=== PATIENT | female | born 1950 | race Asian ===

== ENCOUNTER 2018-02-22 08:03 | Day surgery (SDC) | payer OTHER ==
[2018-02-14 16:36] VITALS: BMI 38.4
[2018-02-22] MEDS ORDERED: LIDOCAINE HCL/PF 2% SDV 5ML VIAL ONE (08:12)
[2018-02-22] MEDS ORDERED: PROPOFOL 20 ML ONE ×2 (08:12)
[2018-02-22 09:54] VITALS: BP 110/66; PULSE 80
[2018-02-22 10:57] VITALS: TEMP 98
--- NOTE | 2018-02-25 19:24 | PATH ---
Surgical Pathology Report Patient Name: CARLA ORTEZ [facility]. Rec. #: [id number] /Age/Gender: 1950 (Age: 67) / F Account: [id number] Location: [facility]-ENDOSCOPY Taken: 02/22/2018 Received: 02/22/2018 Reported: 02/25/2018 Physicians: Rush Howe M.D. Specimen(s) Received BX ILEOCECAL VALVE Clinical History History of polyps Postoperative diagnosis: Mucosal irregularity of ileocecal valve Final Diagnosis ILEOCECAL VALVE, BIOPSY: ILEAL MUCOSA SHOWING PROMINENT REACTIVE LYMPHOID AGGREGATE AND FOCAL ACTIVE ILEITIS. Electronically Signed Sandi Baig M.D. Gross Description Received in formalin, labeled "ileocecal valve" are 2 lea, irregular portions of soft tissue measuring 0.3 and 0.5 cm. in greatest dimension. The specimens are submitted in toto in one cassette. /02/22/201802/22/2018
== END 2018-02-22 10:30 | disposition home or self-care (01) ==
LOC: FASU-ENDO 08:03
PROVIDERS: ATTEND Internal Medicine Gastroenterology
PROC: 0DBC8ZX Excision of Ileocecal Valve, Via Natural or Artificial Opening Endoscopic, Diagnostic (ICD-10-PCS; principal; 2018-02-22 09:05)
DX: Z86.010 Personal history of colon polyps (principal); K52.89 Other specified noninfective gastroenteritis and colitis
CPT/HCPCS: 82962; 88305-TC

== ENCOUNTER 2024-02-29 07:34 | Day surgery (SDC) | payer OTHER ==
[2024-02-22 11:28] VITALS: BMI 32.2
[2024-02-29 08:32] VITALS: RESP 16; TEMP 98.1
[2024-02-29 08:44] VITALS: BP 106/74; PULSE 78
== END 2024-02-29 08:50 | disposition home or self-care (01) ==
LOC: FASU-ENDO 07:34
PROVIDERS: ATTEND Internal Medicine Gastroenterology
PROC: 0DJD8ZZ Inspection of Lower Intestinal Tract, Via Natural or Artificial Opening Endoscopic (ICD-10-PCS; principal; 2024-02-29 08:10)
DX: Z12.11 Encounter for screening for malignant neoplasm of colon (principal); Z86.010 Personal history of colon polyps
CPT/HCPCS: 82962

== ENCOUNTER 2024-04-15 08:53 | Day surgery (SDC) | payer OTHER ==
[2024-04-09 14:56] VITALS: BMI 32.5
[2024-04-15 11:23] VITALS: RESP 18; TEMP 97.1
[2024-04-15 11:32] VITALS: BP 112/66; PULSE 77
== END 2024-04-15 11:45 | disposition home or self-care (01) ==
LOC: FASU-ENDO 08:53
PROVIDERS: ATTEND Internal Medicine Gastroenterology
PROC: 0DDP8ZX Extraction of Rectum, Via Natural or Artificial Opening Endoscopic, Diagnostic (ICD-10-PCS; 2024-04-15)
PROC: 0DDK8ZX Extraction of Ascending Colon, Via Natural or Artificial Opening Endoscopic, Diagnostic (ICD-10-PCS; principal; 2024-04-15 10:42)
DX: Z12.11 Encounter for screening for malignant neoplasm of colon (principal); Z86.010 Personal history of colon polyps; D12.2 Benign neoplasm of ascending colon; D12.8 Benign neoplasm of rectum
CPT/HCPCS: 82962; 88305-TC